=== PATIENT | male | born 1995 | race African-American/Black ===

== ENCOUNTER 2017-06-01 14:18 | Emergency (ER) | payer OTHER ==
[~2017-06-01] VITALS: Ht 180.3 cm; Wt 59.3 kg
[~2017-06-01 14:18] MED LIST: ATHENOL325 MG PO; BENADRYL25 MG PO; PEPCID20 MG PO; PRILOSEC20 MG PO; ZANTAC150 MG PO; ZOFRAN4 MG PO; nohome
[2017-06-01] MEDS ORDERED: NORCO 10/3251 TABLET PO (16:05)
[2017-06-01 16:49] VITALS: BP 112/87
== END 2017-06-01 16:49 | disposition home or self-care (01) ==
LOC: EME 14:18
DX: S02.652A Fracture of angle of left mandible, initial encounter for closed fracture (principal); Y04.0XXA Assault by unarmed brawl or fight, initial encounter
CPT/HCPCS: 70110; 99281; 99284